=== PATIENT | male | born 1980 | race Caucasian/White ===

== ENCOUNTER 2016-10-31 14:50 | Emergency (ER) | payer BC ==
[2016-10-31] MEDS ORDERED: AMOXicillin 250 MG CAP ONE (15:42)
[2016-10-31] MEDS ORDERED: Naproxen 500 MG TAB ONE (15:42)
== END 2016-10-31 15:47 | disposition home or self-care (01) ==
LOC: MADERS 14:50
DX: K04.7 Periapical abscess without sinus (principal); K02.9 Dental caries, unspecified; F17.290 Nicotine dependence, other tobacco product, uncomplicated
CPT/HCPCS: 99282

== ENCOUNTER 2016-11-03 00:36 | Emergency (ER) | payer BC ==
[2016-11-03] MEDS ORDERED: HYDROcodone/Acetaminophen 10/325 mg Tablet ONE (00:58)
[2016-11-03] MEDS ORDERED: Clindamycin 150 MG CAP ONE (00:59)
== END 2016-11-03 01:04 | disposition home or self-care (01) ==
LOC: MADERS 00:36
DX: K08.89 Other specified disorders of teeth and supporting structures (principal); F17.200 Nicotine dependence, unspecified, uncomplicated; Z79.2 Long term (current) use of antibiotics; Z79.891 Long term (current) use of opiate analgesic
CPT/HCPCS: 99282